=== PATIENT | female | born 1930 | race Caucasian/White ===

== ENCOUNTER 2019-12-15 22:02 | Emergency (ER) | payer OTHER ==
[~2019-12-15] VITALS: Ht 154.9 cm; Wt 51.3 kg
--- NOTE | ~2019-12-15 | EMS ---
[facility] [address] [place] [address] EMS Patient Care Report Name: INDIGO DA SILVA Room #: DEP ELVIRA Mix#: [id number] Admission: 12/15/19 Attend Phys: Discharge: 12/16/19 Date of : [birth year] Report #: [id number] THIS REPORT FOR: //name// Report Transmitted: 12/16/2019 03:40 EMS Care Summary [place], [place]/[facility] Incident [id number] @ 12/15/2019 21:30 Incident Location [address] [place] [address] Patient INDIGO DA SILVA Female, 89 Years 1930 Patient Address [address] [place] [address] Patient History Angina,Hypertension (HTN),Gastro-Esophageal Reflux Disease (GERD), Patient Allergies Sulfa, Patient Medications Gabapentin, Metoprolol, Aspirin, Lipitor, Celexa, Chief Complaint GERD SYMPTOMS Disposition Transported No Lights/[place] Dispatch Reason Chest Pain (Non-Traumatic) Transported To [facility] Narrative PT FOUND LYING IN BED. STAFF STATES PT HAS BEEN HAVING CP AND THAT THEY GAVE HER 81 MG ASA AND 3 NTG WITHOUT RELIEF. PT STATES THAT SHE THINKS IT IS HER ESOPHAGUS AND THAT SHE HAS PROBLEMS WITH IT SOMETIMES. PT STATES SHE HAD A [facility] [address] [place] [address] EMS Patient Care Report Name: INDIGO DA SILVA Room #: DEP ER Dominguez#: [id number] Admission: 12/15/19 Attend Phys: Discharge: 12/16/19 Date of : [birth year] Report #: [id number] SPIC[employer] DINNER. PT DOES NOT WANT ANY FURTHER TX FROM EMS, SO IV AND FURTHER DRUG TX NOT DONE. PT TRANSPORTED WITHOUT INCIDENT. Initial Vitals @21:44P: 50,CO: 0,SpO2: 96, @21:46P: 216, @21:41P: 50,R: 18,BP: 158/84,Pain: 4/10,GCS: 15,SpO2: 96,Revised Trauma: 12, Assessments @21:37MENTAL:No Abnormalities,SKIN:No Abnormalities,HEENT:Head/Face: No Abnormalities,Eyes: No Abnormalities,Neck/Airway: No Abnormalities,LUNG SOUNDS:ABDOMEN:PELVIS//GI:EXTREMITIES:PULSE:NEURO:No Abnormalities, Impression Gastro-esophogeal reflux disease (GERD) Procedures @21:37ALS AssessmentResponse: UnchangedSucceeded@21:4412-Lead ECGResponse: UnchangedSucceeded Timeline 21:28,Call Received 21:28,Dispatch Notified 21:30,Dispatched 21:31,En Route 21:34,On Scene 21:37,At Patient 21:37,ALS Assessment,Response: UnchangedSucceeded, 21:41,BP: 158/84 M,PULSE: 50,RR: 18 R,SPO2: 96 Ox,ETCO2: ,BG: ,PAIN: 4,GCS: 15, 21:44,12-Lead ECG,Response: UnchangedSucceeded, 21:44,BP: / M,PULSE: 50,RR: R,SPO2: 96 Ox,ETCO2: ,BG: ,PAIN: ,GCS: , 21:46,BP: / M,PULSE: 216,RR: R,SPO2: Ox,ETCO2: ,BG: ,PAIN: ,GCS: , 21:47,Depart Scene 22:07,At Destination 22:07,Call Closed Disclaimer v1.1 Copyright 2020 [employer] This EMS Care Summary contains data elements from the applicable legal record (which may be displayed differently). It is designed to provide pertinent information for the following purposes: continuity of care, clinical quality, and state data reporting. The complete legal record is available to ED staff and administrators of the receiving hospital in [employer]'s Patient Tracker. All data is provided "as is."
[2019-12-15] MEDS ORDERED: ASPIRIN EC325 M1 PO (22:14)
[2019-12-15] MEDS ORDERED: NORVASC 2.5 MG2.5 M1 PO (22:14)
[2019-12-15] MEDS ORDERED: TYLENOL325 M1 PO (22:14)
[2019-12-15] MEDS ORDERED: CRANBERRY500 M3 PO (22:15)
[2019-12-15] MEDS ORDERED: CELEXA 20 MG TA20 MG PO (22:15)
[2019-12-15] MEDS ORDERED: FAMOTIDINE20 MG PO (22:16)
[2019-12-15] MEDS ORDERED: CATAPRES0.1 MG PO (22:16)
[2019-12-15] MEDS ORDERED: LIPITOR20 MG PO (22:17)
[2019-12-15] MEDS ORDERED: NEURONTIN 300M300 M2 PO (22:17)
[2019-12-15] MEDS ORDERED: ISOSORBIDE MONO30 M1 PO (22:17)
[2019-12-15] MEDS ORDERED: LOPRESSOR50 MG PO (22:17)
[2019-12-15] MEDS ORDERED: MILK OF MA400 MG/5 M PO (22:18)
[2019-12-15] MEDS ORDERED: MULTIVITAMINS1 EAC7 PO (22:18)
[2019-12-15] MEDS ORDERED: OXYBUTYNIN 5 MG5 M1 PO (22:19)
[2019-12-15] MEDS ORDERED: TRAMADOL 50 MG50 MG PO (22:19)
[2019-12-15] MEDS ORDERED: SYNTHROID75 MCG PO (22:19)
[2019-12-15 22:35] LABS: HEMATOCRIT 37.2 % (37.0-47.0); HEMOGLOBIN 12.6 gm/dL (12.0-15.0); MCH 31.9 pg (26.0-34.0); MCV 93.9 fL (80.0-100.0); PLATELET COUNT 168 thou/uL (150-400); RBC 3.96 mil/uL (4.20-5.00); RDW 15.1 % (10.5-14.5); WBC 6.1 thou/uL (4.0-11.0)
[2019-12-15 22:42] LABS: ANION GAP 7 mmol/L (7-16); BUN 18 mg/dL (7-18); CALCIUM 9.5 mg/dL (8.5-10.1); CHLORIDE 99 mmol/L (98-107); CO2 29 mmol/L (21-32); CREATININE 1.4 mg/dL (0.6-1.0); GLUCOSE 105 mg/dL (74-106); POTASSIUM 4.4 mmol/L (3.5-5.1); SODIUM 135 mmol/L (136-145)
[2019-12-15 22:52] LABS: ALBUMIN 3.4 g/dL (3.4-5.0); LIPASE 104 U/L (73-393); SGOT 26 U/L (15-37); SGPT 17 U/L (30-65); TOTAL BILIRUBIN 0.3 mg/dL (0.2-1.0); TOTAL PROTEIN 6.3 g/dL (6.4-8.2); TROPONIN-I <0.06 ng/mL (<0.06)
[2019-12-15 23:18] LABS: ABSOLUTE NEUTROPHILS 3.4 thou/uL (1.4-8.2); LARGE PLATELETS OCCASIONAL
[2019-12-16 03:00] VITALS: BP 142/59
--- NOTE | 2019-12-16 07:44 | EKG ---
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
== END 2019-12-16 03:20 ==
LOC: ER 22:02
PROVIDERS: Emergency Medicine
DX: R07.89 Other chest pain (principal); Z79.82 Long term (current) use of aspirin; Z79.899 Other long term (current) drug therapy; Z88.2 Allergy status to sulfonamides

== ENCOUNTER 2019-12-21 18:19 | Inpatient (IN) | payer OTHER ==
[~2019-12-21] VITALS: Ht 154.9 cm; Wt 49.0 kg
--- NOTE | ~2019-12-21 | EMS ---
[facility] [address] [place] [address] EMS Patient Care Report Name: INDIGO DA SILVA Room #: ADAMARIS Mix#: [id number] Admission: 12/21/19 Attend Phys: Discharge: Date of : [birth year] Report #: [id number] THIS REPORT FOR: //name// Report Transmitted: 12/21/2019 18:18 EMS Care Summary [place], [place]/[facility] Incident [id number] @ 12/21/2019 17:42 Incident Location [address] [facility] [address] Patient INDIGO DA SILVA Female, 89 Years 1930 Patient Address [address] [place] [address] [address] [place] [address] Patient History Angina,Hypertension (HTN),Gastro-Esophageal Reflux Disease (GERD), Patient Allergies Sulfa, Patient Medications Celexa, Lipitor, Aspirin, Gabapentin, Metoprolol, Chief Complaint GI BLEEDING Disposition Transported No Lights/[place] Dispatch Reason Hemorrhage/Laceration Transported To [facility] Narrative PT FOUND LYING IN BED. [facility] P37 ON SCENE. PT STATES SHE HAS BEEN AHVING DARK, COFFE GROUND LOOKING STOOL TODAY. PT DENIES OTHER COMPLAINTS. PT WEARING MASK FOR TRASNPORT. TRASNPORTED WITHOUT INCIDENT. [facility] [address] [place] [address] EMS Patient Care Report Name: INDIGO DA SILVA Room #: REG ELVIRA Mix#: [id number] Admission: 12/21/19 Attend Phys: Discharge: Date of : [birth year] Report #: [id number] Initial Vitals @17:59P: 71,R: 18,BP: 123/68,Pain: 4/10,GCS: 15,CO: 2,SpO2: 94,Revised Trauma: 12, Assessments @17:55MENTAL:No Abnormalities,SKIN:No Abnormalities,HEENT:Head/Face: No Abnormalities,Eyes: No Abnormalities,Neck/Airway: No Abnormalities,LUNG SOUNDS:ABDOMEN:PELVIS//GI:EXTREMITIES:PULSE:NEURO:No Abnormalities, Impression Hemorrhage Procedures @17:55ALS AssessmentResponse: UnchangedSucceeded Timeline 17:39,Call Received 17:39,Dispatch Notified 17:42,Dispatched 17:43,En Route 17:46,On Scene 17:55,At Patient 17:55,ALS Assessment,Response: UnchangedSucceeded, 17:59,BP: 123/68 M,PULSE: 71,RR: 18 R,SPO2: 94 Ox,ETCO2: ,BG: ,PAIN: 4,GCS: 15, 18:00,Depart Scene 18:11,At Destination 18:28,Call Closed Disclaimer v1.1 Copyright 2020 [employer] This EMS Care Summary contains data elements from the applicable legal record (which may be displayed differently). It is designed to provide pertinent information for the following purposes: continuity of care, clinical quality, and state data reporting. The complete legal record is available to ED staff and administrators of the receiving hospital in [employer]'s Patient Tracker. All data is provided "as is."
--- NOTE | ~2019-12-21 | EMS ---
[address] [address] EMS Patient Care Report Name: INDIGO DA SILVA Room #: 460-P ADM IN M.R.#: [id number] Admission: 12/21/19 Attend Phys: Cade Horne MD Discharge: Date of : [birth year] Report #: [id number] THIS REPORT FOR: //name// Report Transmitted: 12/24/2019 08:25 EMS Care Summary [place], [place]/[facility] Incident [id number] @ 12/21/2019 17:42 Incident Location [address] [facility] [address]A Patient INDIGO DA SILVA Female, 89 Years 1930 Patient Address [address] [place] [address] [address] [place] [address] Patient History Angina,Hypertension (HTN),Gastro-Esophageal Reflux Disease (GERD), Patient Allergies Sulfa, Patient Medications Celexa, Lipitor, Aspirin, Gabapentin, Metoprolol, Chief Complaint GI BLEEDING Disposition Transported No Lights/[place] Dispatch Reason Hemorrhage/Laceration Transported To [facility] Narrative PT FOUND LYING IN BED. [facility] P37 ON SCENE. PT STATES SHE HAS BEEN AHVING DARK, COFFE GROUND LOOKING STOOL TODAY. PT DENIES OTHER COMPLAINTS. PT WEARING MASK FOR TRASNPORT. TRASNPORTED WITHOUT INCIDENT. [facility] [address] [place] [address] EMS Patient Care Report Name: INDIGO DA SILVA Room #: 460-P ADM IN Dominguez#: [id number] Admission: 12/21/19 Attend Phys: Cade Horne MD Discharge: Date of : [birth year] Report #: [id number] Initial Vitals @17:59P: 71,R: 18,BP: 123/68,Pain: 4/10,GCS: 15,CO: 2,SpO2: 94,Revised Trauma: 12, Assessments @17:55MENTAL:No Abnormalities,SKIN:No Abnormalities,HEENT:Head/Face: No Abnormalities,Eyes: No Abnormalities,Neck/Airway: No Abnormalities,LUNG SOUNDS:ABDOMEN:PELVIS//GI:EXTREMITIES:PULSE:NEURO:No Abnormalities, Impression Hemorrhage Procedures @17:55ALS AssessmentResponse: UnchangedSucceeded Timeline 17:39,Call Received 17:39,Dispatch Notified 17:42,Dispatched 17:43,En Route 17:46,On Scene 17:55,At Patient 17:55,ALS Assessment,Response: UnchangedSucceeded, 17:59,BP: 123/68 M,PULSE: 71,RR: 18 R,SPO2: 94 Ox,ETCO2: ,BG: ,PAIN: 4,GCS: 15, 18:00,Depart Scene 18:11,At Destination 18:28,Call Closed Disclaimer v1.1 Copyright 2020 [employer] This EMS Care Summary contains data elements from the applicable legal record (which may be displayed differently). It is designed to provide pertinent information for the following purposes: continuity of care, clinical quality, and state data reporting. The complete legal record is available to ED staff and administrators of the receiving hospital in [employer]'s Patient Tracker. All data is provided "as is."
[~2019-12-21 18:19] MED LIST: ASPIRIN EC325 M1 PO; CATAPRES0.1 MG PO; CELEXA 20 MG TA20 MG PO; CRANBERRY500 M3 PO; FAMOTIDINE20 MG PO; ISOSORBIDE MONO30 M1 PO; LIPITOR20 MG PO; LOPRESSOR50 MG PO; MILK OF MA400 MG/5 M PO; MULTIVITAMINS1 EAC7 PO; NEURONTIN 300M300 M2 PO; NORVASC 2.5 MG2.5 M1 PO; OXYBUTYNIN 5 MG5 M1 PO; SYNTHROID75 MCG PO; TRAMADOL 50 MG50 MG PO; TYLENOL325 M1 PO
[2019-12-21 18:20] VITALS: BP 137/57
[2019-12-21 19:22] LABS: ABSOLUTE NEUTROPHILS 5.2 thou/uL (1.4-8.2); BASOPHILS 0.8 % (0.0-2.0); EOSINOPHILS 0.1 % (0.0-3.0); HEMATOCRIT 32.5 % (37.0-47.0); HEMOGLOBIN 11.1 gm/dL (12.0-15.0); LYMPHOCYTES 15.9 % (24.0-44.0); MCH 32.4 pg (26.0-34.0); MCHC 34.1 g/dL (28.0-37.0); MONOCYTES 6.9 % (1.0-8.0); PLATELET COUNT 175 thou/uL (150-400); POLYS 76.3 % (36.0-66.0); RBC 3.42 mil/uL (4.20-5.00); RDW 15.5 % (10.5-14.5); WBC 6.8 thou/uL (4.0-11.0)
[2019-12-21 19:33] LABS: CALCIUM 9.5 mg/dL (8.5-10.1); CREATININE 1.2 mg/dL (0.6-1.0); POTASSIUM 4.3 mmol/L (3.5-5.1)
[2019-12-21 19:36] LABS: APTT 26.2 Seconds (24.5-32.8); INR 1.2; PROTIME 12.7 Seconds (9.3-11.4)
[2019-12-21 19:54] LABS: ALBUMIN 3.6 g/dL (3.4-5.0); TOTAL BILIRUBIN 0.8 mg/dL (0.2-1.0); TOTAL PROTEIN 6.5 g/dL (6.4-8.2)
[2019-12-21 22:52] VITALS: BP 134/89
[2019-12-21 23:20] LABS: FOLIC ACID 6.3 ng/mL (8.6-58.9); TSH 2.974 uIU/mL (0.358-3.740)
[2019-12-21 23:21] LABS: CHOLESTEROL 121 mg/dL (<200); TRIGLYCERIDE 85 mg/dL (<150); VLDL 17 mg/dL (<40)
[2019-12-21 23:22] LABS: HDL CHOLESTEROL 72 mg/dL (>40); LDL CHOLESTEROL 32 mg/dL (<100); SERUM ASSESSMENT Clear; TC:HDL 1.7 Ratio (Not establshd)
[2019-12-21 23:30] VITALS: BP 152/70
--- NOTE | 2019-12-22 03:52 | NUR ---
PATIENT ARRIVED FROM ED VIA CART AT 2318 WITH AIDE. ALERT AND ORIENTED X4. IVF INFUSING PER ORDER. NO SKIN BREAKDOWN, HOWEVER, PATIENT IS PALE. REPORTED BLOODY STOOL FROM ED. NO BLOODY STOOLS AT TIME OF NOTE. WILL MONITOR.
[2019-12-22 06:09] LABS: HEMATOCRIT 24.5 % (37.0-47.0); MCH 32.3 pg (26.0-34.0); MCHC 34.2 g/dL (28.0-37.0); MCV 94.6 fL (80.0-100.0); RBC 2.6 mil/uL (4.20-5.00); RDW 15.2 % (10.5-14.5); WBC 6.5 thou/uL (4.0-11.0)
[2019-12-22 06:23] LABS: CALCIUM 8.6 mg/dL (8.5-10.1); CREATININE 1.1 mg/dL (0.6-1.0); POTASSIUM 4.1 mmol/L (3.5-5.1)
[2019-12-22 06:26] LABS: HEMOGLOBIN 8.4 gm/dL (12.0-15.0)
[2019-12-22 07:18] VITALS: BP 124/74
--- NOTE | 2019-12-22 10:20 | NUR ---
chart review, cm called and visited with ryan via phone call. intro to cm transition of care. she is a & o x 3, with some forgetfulness, pleasant and able to make her needs know " live at [facility], in apartment but been over in other side for few weeks and hope it is not for ever stay. have old walker with seat but don't have to walk as far now like i used to get to dinning room for apartment. used to manage own medication, give them to me and rehab. can talk with son magdalena if need to, he my dpoa. "/pat. cm called to verify if she is ltc or skilled. 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 will cont following as needed. gi consulted.
--- NOTE | 2019-12-22 12:23 | NUR ---
Received awake on bed. Due medications given as prescribed. On nothing per orem- pt informed and aware; mouth swabs done. On telemetry, SR; no complaints of chest pain, crushing sensation and heaviness. On room air. Vital signs stable. On NS at 75cc/hr, infusing well at R AC; with ongoing protonix drip as well at 8mg/hr. May be incontinent of bowel and bladder- checked frequently and changed as needed. Assisted in ADLs. Able to turn self in bed. To continue monitoring patient. Pt seen and examined by Dr Horne, a/w GI consult, possibly for EGD today; to maintain on NPO. Seen and examined by AUTOMOTIVE UPHOLSTERER Bobby- for EGD at 12nn, consent signed, pt informed and aware. Brought down pt via bed. Report received from GI nurse Sadie, pt to be on clear liquids, to start on PO carafate once back to [place].
[2019-12-22 12:40] VITALS: BP 147/64
[2019-12-22 14:09] VITALS: BP 157/78
[2019-12-22 20:29] VITALS: BP 141/58
[2019-12-23 00:36] LABS: URINE BILIRUBIN NEGATIVE (Negative); URINE BLOOD NEGATIVE (Negative); URINE CLARITY CLEAR; URINE COLOR YELLOW; URINE GLUCOSE-RANDOM* NEGATIVE (Negative); URINE KETONES NEGATIVE (Negative); URINE LEUKOCYTES-REFLEX NEGATIVE (Negative); URINE NITRITE-REFLEX NEGATIVE (Negative); URINE PROTEIN (DIPSTICK) NEGATIVE (Negative); URINE SPECIFIC GRAVITY 1.015 (1.005-1.035); URINE UROBILINOGEN 0.2 E.U./dl (0.2-1.0)
--- NOTE | 2019-12-23 03:44 | NUR ---
Assumed pt care at 1900. A/OX4,VSS. C/o BLE pain with movement,medicated per EMAR with some relief reported. Pt's incontinent of bladder and wants to wear pullups in bed educated on skin breakdown risk and why she doesn't need pullups in bed. IVF infusing via RAC w/o problems. Pt c/o burning with urination at the beginning of the shift,order obatained from [place] for UA and collected;results negative,pt updated on results. Fall precautions in place,resting w/o any distress noted,will continue to monitor pt. SR on telemetry.
[2019-12-23 05:34] LABS: MCHC 33.4 g/dL (28.0-37.0); MCV 95.8 fL (80.0-100.0); RBC 2.82 mil/uL (4.20-5.00); RDW 15.4 % (10.5-14.5); WBC 7.5 thou/uL (4.0-11.0)
[2019-12-23 07:20] VITALS: BP 145/49
[2019-12-23 15:29] VITALS: BP 166/59
--- NOTE | 2019-12-23 17:05 | NUR ---
carlito spoke with aj with [facility] pt from skilled rehab and they would like her to come back skilled. carliot faxed updates and negative covid results to # [phone]
--- NOTE | 2019-12-23 20:17 | NUR ---
Assumed pt care this am, pt is weak and her main concern is she is urinating so much and would like to have a diaper. Educated on the cause, prevention and treatment of a rash that is caused by prolonged use of soiled diapers. Changed the pt multiple times, kept on clear liquids, encouraged to finish her suppliments. smears of stool was noted reddish brown in color. Update given to to the son / dpoa. POC followed with no signs or verbalizations of ldistress noted.
[2019-12-23 20:40] VITALS: BP 162/71
--- NOTE | 2019-12-24 00:08 | NUR ---
ASSUMED CARE OF PT AT 1900. PT IS A/O X1-2. PT IS PLEASANT. [place]. UP WITH ASSISTANCE TO THE BSC BUT INCONT AT TIMES. PT REPOSITIONS SELF WHILE IN BED. CURRENTLY SHE IS LYING IN HER BED AND APPEARS TO BE SLEEPING. NO BOWEL MOVEMENT WITH BLOOD NOTED. WILL CONTINUE TO MONITOR. FALL PRECAUTIONS ARE IN PLACE, CALL LIGHT IS WITHIN REACH.
[2019-12-24 08:25] VITALS: BP 170/60
[2019-12-24 08:42] VITALS: BP 170/60
--- NOTE | 2019-12-24 11:24 | NUR ---
dc today [facility] vs [facility].
[2019-12-24] MEDS ORDERED: PROTONIX40 M2 PO (11:30)
[2019-12-24] MEDS ORDERED: CARAFATE 11 GM/10 M1 PO (11:30)
--- NOTE | 2019-12-24 13:04 | NUR ---
pt accepted to 5n, after liaison speaking with pt and son magdalena. dcp will be back to [facility] rt will loose her skilled bed per son magdalena. cm spoke with aj charge nurse. chart copy requested. bedside nurse to call report to [phone] ask for skilled or ext [phone]. dc orders to be sent to [facility].
--- NOTE | 2019-12-24 13:23 | NUR ---
PT DISCHARGING TODAY TO [facility] SKILLED FAXED DC ORDERS/SUMMARY TO FACILITY RECEIVED CONFIRMATION AND SET UP [facility]SP[facility] [employer] VAN THEY HAVE A 3 HR WINDOW TO MANAGER FIBER PT SO THEY WILL MANAGER FIBER BETWEEN [phone]. FAMILY NOTIFIED AND UNIT.
--- NOTE | 2019-12-24 13:57 | NUR ---
Assumed pt care at 7am.Pt in bed resting without c/o.Assessment completed.vss. Pt transfered to bed by therapist after walking in the room.Pt has stress incontinent and wet bed a lot.Complete bed and brief change done.Assisted pt with tray setup at lunch.Pt only took few bites of mashed potatoes and turkey. Dr Horne here,dc order noted.Chart copy done.Report given to Leah at [facility].Pt will bed dc per van between now and 1615 per employment evaluator/case manager.Will continue to monitor.
--- NOTE | 2019-12-25 11:19 | P ---
[facility] [place] [address] [place] [address] PROCEDURE REPORT Name: INDIGO DA SILVA Room #: 460-P [facility] IN M.R.#: [id number] Admission: 12/21/19 Attend Phys: Cade Horne MD Discharge: 12/24/19 Date of : [birth year] Report #: [id number] THIS REPORT FOR: cc: Carito Denise MD, Ramilo MD McElhinney, Christian C. MD ~ CC: Cade Denise MD DATE OF SERVICE: 12/22/2019 PROCEDURE PERFORMED: Upper endoscopy. HISTORY OF PRESENT ILLNESS: The patient is an 89-year-old female who was admitted with hematemesis. Apparently, has had a previous history of an esophageal ulcer in the past. She does take aspirin. She is on Pepcid. She does report dysphagia. Her hemoglobin on admission yesterday was 11.1, hemoglobin today is 8.4. She has had some melanotic stools recently. Plan is for upper endoscopy for further evaluation. DESCRIPTION OF PROCEDURE: The risks and benefits of the procedure were explained to the patient, those risks including but not limited to bleeding, perforation and the risk of sedation. She understood these risks and gave informed consent. Sedation was given using general anesthesia. Next, using a therapeutic Olympus upper endoscope, the scope was placed in the patient's mouth and advanced under direct vision through the esophagus, stomach and into the second portion of the duodenum. The upper esophagus was normal. In the mid to distal esophagus, severe grade D erosive esophagitis was noted. No active bleeding. No clots were noted; however, the tissue was friable. Upon entering the stomach, a small hiatal hernia was noted. There was a mild diffuse moderate gastritis throughout the fundus and body. In the antrum, there was patchy erythema. There were 2 small 3-4 mm clean white based ulcers in the antrum. No evidence of bleeding. There was no evidence of blood throughout the exam today. The pylorus was normal and patent. The duodenal bulb, first and second portion were all normal. I did not take biopsies as the patient has been on aspirin recently. The scope was then withdrawn and the procedure terminated. The patient tolerated the procedure well. IMPRESSION: 1. Grade D erosive esophagitis, likely source of recent hematemesis. No evidence of active bleeding. 2. Small hiatal hernia. 3. Gastritis. 4. Two small antral ulcers. [address] [address] PROCEDURE REPORT Name: INDIGO DA SILVA Room #: 460-P DIS IN Lindsay.Dimas.#: [id number] Admission: 12/21/19 Attend Phys: Cade Horne MD Discharge: 12/24/19 Date of : [birth year] Report #: [id number] RECOMMENDATIONS: 1. Continue PPI drip. 2. We will add liquid Carafate at this time. 3. We will start clear liquids today and continue to monitor hemoglobin closely. 4. Check stool H. pylori antigen. Thank you for allowing me to participate in her care. <ELECTRONICALLY SIGNED> By: Hunter Burdick MD 12/25/19 1119 1209 1649 Hunter Burdick MD /nt
== END 2019-12-24 17:03 | DRG 381 ==
LOC: ER 18:19 → EROBS 20:11 → 4W 20:11
PROVIDERS: Emergency Medicine; Nurse Practitioner Family; ADMIT Internal Medicine; ATTEND Internal Medicine
PROC: 0DJ08ZZ Inspection of Upper Intestinal Tract, Via Natural or Artificial Opening Endoscopic (ICD-10-PCS; principal; 2019-12-22)
DX: K22.11 Ulcer of esophagus with bleeding (principal); N17.9 Acute kidney failure, unspecified; D62 Acute posthemorrhagic anemia; K29.71 Gastritis, unspecified, with bleeding; K25.4 Chronic or unspecified gastric ulcer with hemorrhage; E78.5 Hyperlipidemia, unspecified; K92.0 Hematemesis; G47.00 Insomnia, unspecified; Z20.828 Contact with and (suspected) exposure to other viral communicable diseases; K59.00 Constipation, unspecified; E03.9 Hypothyroidism, unspecified; N18.9 Chronic kidney disease, unspecified; K44.9 Diaphragmatic hernia without obstruction or gangrene; G89.4 Chronic pain syndrome; E86.0 Dehydration; I12.9 Hypertensive chronic kidney disease with stage 1 through stage 4 chronic kidney disease, or unspecified chronic kidney disease; F39 Unspecified mood [affective] disorder; M62.84 Sarcopenia; R63.4 Abnormal weight loss; N32.81 Overactive bladder; I73.9 Peripheral vascular disease, unspecified; Z88.2 Allergy status to sulfonamides; Z68.20 Body mass index [BMI] 20.0-20.9, adult; Z79.82 Long term (current) use of aspirin; Z79.899 Other long term (current) drug therapy
CPT/HCPCS: 10045; 62110; 62900

== ENCOUNTER 2020-09-03 18:35 | Inpatient (IN) | payer OTHER ==
[~2020-09-03] VITALS: Ht 154.9 cm; Wt 56.8 kg
[2020-09-03] VITALS (13 sets, daily range): BP systolic 91–119; BP diastolic 42–55
[~2020-09-03 18:35] MED LIST changes: +CARAFATE 11 GM/10 M1 PO; +PROTONIX40 M2 PO
[2020-09-03 18:59] LABS: HEMOGLOBIN 12.8 gm/dL (12.0-15.0); MCH 32.5 pg (26.0-34.0); MCHC 32.9 g/dL (28.0-37.0); MCV 98.9 fL (80.0-100.0); PLATELET COUNT 144 thou/uL (150-400); RBC 3.95 mil/uL (4.20-5.00); RDW 13.5 % (10.5-14.5); WBC 16.8 thou/uL (4.0-11.0)
[2020-09-03 19:03] LABS: ANION GAP 14 mmol/L (7-16); BUN 51 mg/dL (7-18); CALCIUM 9.4 mg/dL (8.5-10.1); CHLORIDE 99 mmol/L (98-107); CO2 25 mmol/L (21-32); CREATININE 3.4 mg/dL (0.6-1.0); GLUCOSE 131 mg/dL (74-106); POTASSIUM 3.6 mmol/L (3.5-5.1); SODIUM 138 mmol/L (136-145)
[2020-09-03 19:13] LABS: ALBUMIN 2.9 g/dL (3.4-5.0); DIRECT BILIRUBIN 0.3 mg/dL (<0.1-0.2); LIPASE 37 U/L (73-393); SGOT 27 U/L (15-37); SGPT 19 U/L (14-59); TOTAL BILIRUBIN 0.7 mg/dL (0.2-1.0); TOTAL PROTEIN 6.7 g/dL (6.4-8.2); TROPONIN-I <0.06 ng/mL (<0.06)
[2020-09-03 19:17] LABS: URINE BILIRUBIN NEGATIVE (Negative); URINE BLOOD 2+ (Negative); URINE CLARITY CLOUDY; URINE COLOR YELLOW; URINE GLUCOSE-RANDOM* NEGATIVE (Negative); URINE KETONES NEGATIVE (Negative); URINE NITRITE-REFLEX NEGATIVE (Negative); URINE PROTEIN (DIPSTICK) 2+ (Negative); URINE UROBILINOGEN 0.2 E.U./dl (0.2-1.0)
[2020-09-03 19:18] LABS: URINE LEUKOCYTES-REFLEX 2+ (Negative)
[2020-09-03 19:26] LABS: SQUAMOUS >10 Many /LPF (0-3)
[2020-09-03 19:27] LABS: AMORPHOUS URATES Moderate /LPF (None Seen); CASTS None Seen /LPF (None Seen); URINE RBC 1-2 Rare /HPF (NONE SEEN)
[2020-09-03 19:44] LABS: ABSOLUTE NEUTROPHILS 15.6 thou/uL (1.4-8.2)
[2020-09-03 19:45] LABS: LARGE PLATELETS RARE; PLATELET ESTIMATE NORMAL
--- NOTE | 2020-09-03 21:30 | NUR ---
2132-PT ARRIVED FROM ER VIA CART. PT TRANSFERED TO ICU BED, ATTACHED TO MONITORS, AND ASSESSED PER PROTOCOL. PT A&OX2 (PERSON/TIME), PLEASANTLY CONFUSED, NOT IMPLUSIVE OR RESTLESS. IVF/ABX STARTED PER EMAR. PT BLOOD PRESSURE STABLE WITHOUT ANY PRESSORS NEEDED. PT ON 4L NC, BASELINE AT [facility] PT DOES NOT WEAR OXYGEN. SON, CHANDRA, CALLED AND UPDATED ON PTS CONDITION. CHANDRA WAS GIVEN PTS SECURITY CODE AND TOLD VISITING HOURS. ALL QUESTIONS WERE ANSWERED.
[2020-09-03 21:58] LABS: APTT 31.6 Seconds (24.5-32.8); INR 1.14; PROTIME 12.3 Seconds (10.5-12.1)
[2020-09-03 22:56] LABS: CALCIUM 8.3 mg/dL (8.5-10.1); CREATININE 3.2 mg/dL (0.6-1.0); POTASSIUM 4.1 mmol/L (3.5-5.1)
[2020-09-04] VITALS (19 sets, daily range): BP systolic 88–127; BP diastolic 38–72
[2020-09-04 03:23] LABS: CALCIUM 8.6 mg/dL (8.5-10.1); CREATININE 3.2 mg/dL (0.6-1.0); POTASSIUM 3.9 mmol/L (3.5-5.1)
[2020-09-04 06:48] LABS: ABSOLUTE NEUTROPHILS 13.6 thou/uL (1.4-8.2); BASOPHILS 0.2 % (0.0-2.0); EOSINOPHILS 0.3 % (0.0-3.0); HEMOGLOBIN 11.4 gm/dL (12.0-15.0); LYMPHOCYTES 5.1 % (24.0-44.0); MCH 32.6 pg (26.0-34.0); MCHC 32.5 g/dL (28.0-37.0); MCV 100.4 fL (80.0-100.0); PLATELET COUNT 134 thou/uL (150-400); POLYS 88.4 % (36.0-66.0); RBC 3.48 mil/uL (4.20-5.00); RDW 13.9 % (10.5-14.5); WBC 15.3 thou/uL (4.0-11.0)
[2020-09-04 07:07] LABS: CALCIUM 8.5 mg/dL (8.5-10.1); CREATININE 3.1 mg/dL (0.6-1.0); POTASSIUM 3.9 mmol/L (3.5-5.1)
--- NOTE | 2020-09-04 07:46 | EKG ---
[place] [address] [facility] [place] [address] ELECTROCARDIOGRAM REPORT Name: INDIGO DA SILVA Room #: 244-P ADM IN M.R.#: [id number] Admission: 09/03/20 Attend Phys: Mitzi Quevedo MD Discharge: Date of : [birth year] Report #: [id number] [facility] ED Test Date: 2020-09-03 Test Time: 19:15:55 Pat Name: INDIGO DA SILVA Department: Room: [facility] Gender: F Space Operations: seth : 1930 Requested By: Trever Marina Order Number: [id number] MD: Bartolome Taylor Measurements Intervals [place] Rate: 76 P: 42 [place]: 135 QRS: -68 QRSD: 123 T: 10 QT: 418 QTc: 471 Interpretive Statements Sinus rhythm RBBB and LAFB Compared to ECG 12/15/2019 22:12:33 Sinus bradycardia no longer present Incomplete right bundle-branch block no longer present Electronically Signed On 09-04-2020 7:46:16 CDT by Bartolome Taylor [email or web address] <ELECTRONICALLY SIGNED> By: Bartolome Taylor MD, [facility] 09/04/20 0746 14 14 Bartolome Taylor MD, FACC /EPI
--- NOTE | 2020-09-04 12:19 | NUR ---
chart review. discussed during los and am rounds. will possible move out if icu today. last time was here at hospital, was sent back to skilled rehab at [facility] and was from [facility]. carlito visited with her son magdalena via phone call. he reported " never able to go back to her apartment, she needs help so stayed at skilled, uses walker and wheel chair. i will come up later to visit her"/son magdalena. carlito spoke with [facility] staff, she lives in ltc, had both of her covid vaccine. will following as needed for dc needs.
--- NOTE | 2020-09-04 16:52 | NUR ---
1645- Nurse updated patients son over the phone on patient moving and an updated status. He expressed he will be up in about an hour to visit with her in room 351. Report was called to BERNADINE Dolan on for continuation of care once transferred.
--- NOTE | 2020-09-04 18:19 | NUR ---
PT TRANSFERED FROM ICU ABOUT 1730PM, PT IS A&OX2 ( PERSON AND PLACE ), PT CAN FOLLOW COMMANDS, PT IS ON ROOM AIR , PT'S VS ARE STABLE, PT DENIES PAIN AND SOB BY THIS TIME, PT IS GOING TO HAVE ABD CT SCAN NOW.
[2020-09-05 04:36] VITALS: BP 112/54
[2020-09-05 06:13] LABS: BASOPHILS 0.3 % (0.0-2.0); EOSINOPHILS 0.6 % (0.0-3.0); HEMATOCRIT 34.3 % (37.0-47.0); HEMOGLOBIN 11.2 gm/dL (12.0-15.0); LYMPHOCYTES 4.9 % (24.0-44.0); MCH 32.6 pg (26.0-34.0); MCHC 32.6 g/dL (28.0-37.0); MCV 100.2 fL (80.0-100.0); MONOCYTES 10.5 % (1.0-8.0); PLATELET COUNT 140 thou/uL (150-400); POLYS 83.7 % (36.0-66.0); RBC 3.42 mil/uL (4.20-5.00); WBC 11.9 thou/uL (4.0-11.0)
[2020-09-05 06:30] LABS: CALCIUM 8.6 mg/dL (8.5-10.1); CREATININE 2.8 mg/dL (0.6-1.0); POTASSIUM 3.4 mmol/L (3.5-5.1)
[2020-09-05 07:13] VITALS: BP 134/70
--- NOTE | 2020-09-05 14:26 | NUR ---
KEVIN reviewed chart and spoke with nursing and attending physician. Pt was transferred to 3 from ICU and is progressing towards goals for discharge. Discharge back to [facility] is anticipated for tomorrow. Pt is on 2L of O2 and IV abx. KEVIN faxed clinical/therapy notes to VICTOR MANUEL Mir at [facility] for review. Per Adeola, they will have pt returning using her skilled benefit. KEVIN spoke with pt's son, Cory, via phone to provide update and notify of discharge plan. Cory is aware and in agreement with discharge plan. KEVIN is following to assist as needed with discharge planning.
[2020-09-05 15:16] VITALS: BP 146/72
--- NOTE | 2020-09-05 17:35 | NUR ---
ASSUMED PATIENT CARE AT 0700. A/O X3. FORGETFUL. ON 2L/NC. DESAT WITH ACTIVITY. DENIES PAIN. UP WITH ASSISTED. PROGRESSING TOWARDS POC GOALS
[2020-09-05 20:10] VITALS: BP 131/55
[2020-09-06 05:13] VITALS: BP 155/87
[2020-09-06 05:13] LABS: HEMATOCRIT 33.2 % (37.0-47.0); MCH 33.2 pg (26.0-34.0); MCHC 33.1 g/dL (28.0-37.0); MCV 100.3 fL (80.0-100.0); RBC 3.31 mil/uL (4.20-5.00); RDW 13.9 % (10.5-14.5); WBC 9.5 thou/uL (4.0-11.0)
[2020-09-06 05:27] LABS: ALBUMIN 2.1 g/dL (3.4-5.0); CALCIUM 8.7 mg/dL (8.5-10.1); CREATININE 2.7 mg/dL (0.6-1.0); PHOSPHORUS 3.2 mg/dL (2.5-4.9); POTASSIUM 3.7 mmol/L (3.5-5.1)
--- NOTE | 2020-09-06 06:22 | NUR ---
VSS OVERNIGHT. IV FLUIDS STOPPED. FOLLOWING POC WITH IVPB ANTIBIOTICS. HOURLY ROUNDING.
[2020-09-06 07:51] VITALS: BP 169/83
--- NOTE | 2020-09-06 13:41 | NUR ---
Case discussed with the care team. Dc to snf on hold today awaiting ID recommendations for atb due to + urine cultures. Adeola RUSH at [facility] updated. Pt can return there under her snf benefits when ready, likely tomorrow. They will need us to arrange for w/c van transport as their van is tied up with appointments. Chart copy ordered for likely dc tomorrow.
--- NOTE | 2020-09-06 17:32 | NUR ---
ASSUMED CARE OF PATIENT THIS SHIFT. PATIENT REMAINS A/O X2-4 AND IS DROWSY INTERMITTENLY THROUGHOUT SHIFT. PATIENT AMBULATED WITH PT IN ROOM AND SAT UPRIGHT IN CHAIR FOR MOST OF SHIFT. PATIENT PLACED ON CONTACT PRECAUTIONS DUE TO MICRO RESULTS IN URINE. VSS. NO OTHER ACUTE CHANGES NOTED, SEE CHARING FOR PATIENT ASSESSMENT.
[2020-09-06 19:18] VITALS: BP 185/74
--- NOTE | 2020-09-06 20:29 | NUR ---
PT UP IN LOUNGE CHAIR. DAUGHTER AT SIDE. PT DRINKING GO LYTELY PREP. PT ON CL LIQUIDS UNTIL MN, THEN NPO. PT VERBALIZED UNDERSTANDING. PT HAVING STOOLS BUT THEY ARE FORMED AND CONTINUE WITH BRIGHT BLOOD TINGE. STEADY GAIT.
--- NOTE | 2020-09-06 20:32 | NUR ---
PT UP IN LOUNGE CHAIR WATCHING TV. O2 INTACT. HER TO DD. ISOLATION ECOLI URINE. PT HAS COUGH. PT HAD HS SNACK. PT LAUGHING AT TV SHOW. LUNGS WITH WHEEZES, HR IRREG. BP ELEVATED PT REPORTED HIP AND LEG PAIN. PROVIDER CONTACTED AND PRN PROVIDED ONE HOUR EARLY PER PROVIDER. WILL RECHECK BP. PT CALLS FOR ASSISTANCE.
[2020-09-06 21:05] VITALS: BP 154/60
[2020-09-07 04:25] VITALS: BP 171/79
[2020-09-07 05:00] LABS: ALBUMIN 2.2 g/dL (3.4-5.0); CREATININE 2.6 mg/dL (0.6-1.0); PHOSPHORUS 2.8 mg/dL (2.5-4.9); POTASSIUM 3.4 mmol/L (3.5-5.1)
--- NOTE | 2020-09-07 05:55 | NUR ---
BP ELEVATED PT SLEEPING AND NOT IN PAIN. PROVIDER NOTIFIED. PT HAD BEEN ON BP MEDS PRIOR TO ADMISSION. NEW ORDERS OBTAINED.
[2020-09-07 07:07] VITALS: BP 167/92
[2020-09-07] MEDS ORDERED: MEROPENEM500 MG IV (08:03)
--- NOTE | 2020-09-07 11:08 | NUR ---
A #4F SINGLE LUMEN POWER INJECTABLE MIDLINE WAS PLACED FOR OUTPATIENT ANTIBIOTICS PER HOSPITAL POLICY. LINE WAS TRIMMED TO 15CM AND ADVANCED WITHOUT DIFFICULTY. LINE SECURED AND RELEASED FOR USE
--- NOTE | 2020-09-07 13:21 | NUR ---
DISCHARGE NOTE: KEVIN reviewed chart and spoke with nursing and attending physician. Pt is medically stable for discharge back to [facility] today. Pt to have midline placed for continued IV abx. KVEIN faxed finalized discharge orders/summary to [facility] and spoke with Adeola, the DON at the facility. Confirmed orders wer received. Wheelchair van transportation scheduled for [id number] per facility's arrangements. KEVIN spoke with pt's son, Cory, via phone to provide update and notify of discharge plan. Cory is aware and in agreement with plan. Chart copy completed. Nursing provided with number to call report. No additional SW needs identified at this time, but is available to assist should needs arise.
--- NOTE | 2020-09-07 13:43 | NUR ---
ASSUMED PATIENT CARE AT 0700. A/O X3. PLEASANT. HER DC'D AT 1000. PATIENT IS INCONTIUNE URINE.VSS. NEW MIDLINE AT LEFT UP ARM. WILL DC TO SNF AT 1400.
== END 2020-09-07 14:30 | DRG 871 ==
LOC: ER 18:35 → ICU 20:07 → EROBS 20:07 → ICU 21:56 → 3W 09-04 17:02
PROVIDERS: Hospitalist; Nurse Practitioner; Nurse Practitioner Family; ADMIT Internal Medicine; ATTEND Internal Medicine
PROC: 05HC33Z Insertion of Infusion Device into Left Basilic Vein, Percutaneous Approach (ICD-10-PCS; principal; 2020-09-07)
DX: A41.51 Sepsis due to Escherichia coli [E. coli] (principal); G92 Toxic encephalopathy; R65.21 Severe sepsis with septic shock; N17.9 Acute kidney failure, unspecified; E44.0 Moderate protein-calorie malnutrition; N39.0 Urinary tract infection, site not specified; Z16.24 Resistance to multiple antibiotics; Z16.12 Extended spectrum beta lactamase (ESBL) resistance; I95.89 Other hypotension; Z20.822 Contact with and (suspected) exposure to COVID-19; G89.29 Other chronic pain; K59.00 Constipation, unspecified; K31.9 Disease of stomach and duodenum, unspecified; E78.5 Hyperlipidemia, unspecified; E03.9 Hypothyroidism, unspecified; K21.9 Gastro-esophageal reflux disease without esophagitis; I95.9 Hypotension, unspecified; K25.9 Gastric ulcer, unspecified as acute or chronic, without hemorrhage or perforation; N18.9 Chronic kidney disease, unspecified; Z66 Do not resuscitate; I12.9 Hypertensive chronic kidney disease with stage 1 through stage 4 chronic kidney disease, or unspecified chronic kidney disease; M19.90 Unspecified osteoarthritis, unspecified site; J32.3 Chronic sphenoidal sinusitis; Z88.2 Allergy status to sulfonamides; Z79.899 Other long term (current) drug therapy
CPT/HCPCS: 10078; 10879; 27000; 50455

== ENCOUNTER 2020-09-16 06:34 | Emergency (ER) | payer OTHER ==
[~2020-09-16] VITALS: Ht 154.9 cm; Wt 58.1 kg
[~2020-09-16 06:34] MED LIST changes: +MEROPENEM500 MG IV
[2020-09-16 08:26] LABS: ABSOLUTE NEUTROPHILS 7.9 thou/uL (1.4-8.2); BASOPHILS 0.7 % (0.0-2.0); EOSINOPHILS 1.8 % (0.0-3.0); HEMATOCRIT 35.9 % (37.0-47.0); LYMPHOCYTES 9.7 % (24.0-44.0); MCH 32.9 pg (26.0-34.0); MCHC 33.5 g/dL (28.0-37.0); MCV 98.2 fL (80.0-100.0); MONOCYTES 9.4 % (1.0-8.0); PLATELET COUNT 315 thou/uL (150-400); POLYS 78.4 % (36.0-66.0); RBC 3.66 mil/uL (4.20-5.00); RDW 13.4 % (10.5-14.5); WBC 10.1 thou/uL (4.0-11.0)
[2020-09-16 08:34] LABS: CALCIUM 9.3 mg/dL (8.5-10.1); CREATININE 1.4 mg/dL (0.6-1.0); POTASSIUM 3.5 mmol/L (3.5-5.1)
[2020-09-16 10:24] VITALS: BP 154/61
== END 2020-09-16 10:25 | disposition home or self-care (01) ==
LOC: ER 06:34
PROVIDERS: Emergency Medicine
DX: M17.11 Unilateral primary osteoarthritis, right knee (principal); M16.11 Unilateral primary osteoarthritis, right hip; I10 Essential (primary) hypertension; G89.29 Other chronic pain; E78.5 Hyperlipidemia, unspecified; Z88.2 Allergy status to sulfonamides; Z79.899 Other long term (current) drug therapy